=== PATIENT | male | born 1950 | race Caucasian/White ===

== ENCOUNTER 2016-05-26 10:04 | Day surgery (SDC) | payer OTHER ==
[2016-05-22 11:04] VITALS: BMI 24.7
[~2016-05-26 10:04] MED LIST: LACTATED RINGERS 1,000 ML IV SCH
[2016-05-26 10:31] VITALS: RESP 16; TEMP 98
[2016-05-26] MEDS ORDERED: LIDOCAINE 1% 20 ML VIAL (10MG/ML) FOR IV START INTRADERMA ONE (10:37)
[2016-05-26] MEDS ORDERED: LIDOCAINE 1% INJ 10MG/ML (20 ML MDV) ONE (11:11)
[2016-05-26] MEDS ORDERED: PROPOFOL 10 MG/ML 20 ML VIAL IV ONE (11:11)
--- NOTE | 2016-05-26 11:45 | P.PCN ---
Date of Procedure: 05/26/16 Procedure(s) Performed: Procedure: Colonoscopy and polypectomy. Preoperative diagnosis: Screening for neoplasia. Postoperative diagnosis: 1. Distal sigmoid polyp snared but no large polyps or cancer. 2. Mild sigmoid diverticulosis with no evidence of acute diverticulitis or strictures. Preparation: HalfLytely prep. Sedation: Was provided by anesthesia. Brief clinical history: The patient is a 65-year-old male who is referred for this evaluation for screening for neoplasia, age being his risk factor. He has no abdominal complaints, bleeding or anemia. This would be his first colonoscopy. Procedure: With the patient on his left lateral decubitus position and after informed consent and adequate sedation, the perianal area was inspected and it did not show any fissures or fistulas. There were no masses felt on digital rectal examination. The Olympus CFQ 160L video colonoscope was then inserted in the rectum in the usual fashion and advanced to the cecum. There was few small diverticular orifices seen scattered in the sigmoid with no evidence of acute diverticulitis or strictures. The mucosa appeared healthy. A small polyp was seen in the distal sigmoid. It was snared and retrieved by suction. There were no large polyps or cancer. I retroflexed the endoscope in the rectum before the endoscope was withdrawn. The patient tolerated the procedure well. Plan: The patient was reassured. Discussed dietary measures. I anticipate repeating this exam in 5 years. He will follow up with you as planned.
[2016-05-26 12:01] VITALS: BP 148/68; PULSE 68
== END 2016-05-26 12:17 | disposition home or self-care (01) ==
LOC: ORWHC2ENDO 10:04
DX: Z12.11 Encounter for screening for malignant neoplasm of colon (principal); D12.5 Benign neoplasm of sigmoid colon; K57.30 Diverticulosis of large intestine without perforation or abscess without bleeding; F17.200 Nicotine dependence, unspecified, uncomplicated; M19.90 Unspecified osteoarthritis, unspecified site; Z79.891 Long term (current) use of opiate analgesic
CPT/HCPCS: 88305; 45385; J2001; J2704

== ENCOUNTER → 2019-09-26 | Outpatient (CLI) | payer MEDICARE, OTHER ==
--- NOTE | 2019-09-26 16:01 | CTL ---
EXAMINATION TYPE: CT Low Dose Lung DATE OF EXAM ORDERED: 09/26/2019 HISTORY: Personal history tobacco use. Lung cancer screening CT DLP: [address] CTDI: 1.95 mGy Automated exposure control for dose reduction was used. SCREENING VISIT: 1 COMPARISON: None TECHNIQUE: Low dose computed tomography scan was performed through the chest at 1 mm thick sections a nd reconstructed images in the coronal plane at [address] DIAGNOSTIC QUALITY: Satisfactory FINDINGS: LUNG NODULES: Present, detailed below: There are bilateral calcified pulmonary nodules which are subc entimeter in size scattered within the lungs. Largest nodules in the right upper lobe and right lower lobe and measures approximately 5 mm. LUNGS: COPD: Severity: None Fibrosis: Severity: None Lymph nodes: Nonenlarged Other findings: Calcified right hilar nodes RIGHT PLEURAL SPACE: Effusion: None Calcification: None Thickening: None Pneumothorax: None LEFT PLEURAL SPACE: Effusion: None Calcification: None Thickening: None Pneumothorax: None HEART: Heart Size: Normal Coronary calcification: Mild Pericardial effusion: None OTHER FINDINGS: Upper abdomen: Unremarkable, suspect a, aortic left renal vein Bony thorax: There is spondylosis present within the visualized spine Supraclavicular region: Unremarkable Other: IMPRESSION: Probably benign FOLLOW UP CT CHEST RECOMMENDATION: 6-[address] LUNG RAD: 3
== END | disposition home or self-care (01) ==
LOC: RADCTMAIN 13:59
PROVIDERS: ATTEND Nurse Practitioner Family
DX: Z12.2 Encounter for screening for malignant neoplasm of respiratory organs (principal); F17.210 Nicotine dependence, cigarettes, uncomplicated

== ENCOUNTER → 2020-04-15 | Outpatient (CLI) | payer MEDICARE, OTHER ==
--- NOTE | 2020-04-15 16:21 | CT ---
EXAMINATION TYPE: CT chest wo con DATE OF EXAM: 04/15/2020 COMPARISON: 09/26/2019 low-dose CT chest HISTORY: Previous abnormal exam of lung virgen CT DLP: 508 mGycm, Automated exposure control for dose reduction was used. CONTRAST: Performed injected with 0 mL of Isovue 300. TECHNIQUE: Axial images were obtained at 5 mm thick sections. Reconstructed images are reviewed on [employer] computer in the coronal plane. FINDINGS: Portion of the thyroid visualized is normal. Numerous small nodules are scattered throughout the bilateral lung virgen in both upper and lower александр g virgen. A large majority of these can be classified as simple granuloma there are calcified. Some o f these however lack calcification anterolateral uncertain etiology. Enlarging or new nodules are not identified. No enlarged mediastinal or hilar adenopathy is evident. The ascending aorta diameter at the level o f the main pulmonary artery is 3.6 cm. The main pulmonary artery diameter at the bifurcation is 2.[address] sections are obtained through the upper abdomen. Abdomen is essentially unremarkable. IMPRESSIONS: 1. Multiple scattered nodules present bilaterally majority are calcified benign nodules. Suspicious n ew or enlarging nodules are not identified. Continued monitoring with CT chest is recommended.
== END | disposition home or self-care (01) ==
LOC: RADCTMAIN 09:27
PROVIDERS: ATTEND Family Medicine
DX: R91.8 Other nonspecific abnormal finding of lung field (principal)
CPT/HCPCS: 71250

== ENCOUNTER 2020-09-13 12:24 | Emergency (ER) | payer MEDICARE, OTHER ==
[2020-09-13 12:37] VITALS: RESP 18
--- NOTE | 2020-09-13 13:28 | XR ---
EXAMINATION TYPE: XR knee complete LT DATE OF EXAM: 09/13/2020 CLINICAL HISTORY: Pain TECHNIQUE: Three views of the left knee are obtained. COMPARISON: None. FINDINGS: There is no acute fracture/dislocation evident in left knee. There are tricompartmental de generative changes with a small nonspecific knee joint effusion and prepatellar swelling. Vascular ca lcifications are seen. IMPRESSION: There are tricompartmental degenerative changes with a small nonspecific knee joint effusion and prep atellar swelling.
--- NOTE | 2020-09-13 13:44 | ED ---
General Adult HPI - General Chief complaint: Extremity Problem,Nontraumatic Stated complaint: knee pain Time Seen by Provider: 09/13/20 12:44 Source: patient, RN notes reviewed, old records reviewed Mode of arrival: ambulatory Limitations: no limitations - History of Present Illness Initial comments: 69-year-old male with left knee pain. He has chronic left knee pain for the past 12 years. This is been worsening recently. He has been favoring the right leg but now is having trouble with increased pain in the left despite minimal use. He has not seen orthopedics but has been evaluated by his primary care physician. He's had no fever. He reports minimal swelling. No constitutional symptoms. No injury. - Related Data Home Medications Medication Instructions Recorded Confirmed Mobic (Unknown Dose) 1 tab PO DAILY 05/22/16 05/26/16 Naproxen Sodium [Aleve] 220 mg PO DAILY PRN 05/22/16 05/26/16 Nicotine Patch (Unknown Dose) 1 patch TOPICAL DAILY 05/22/16 05/26/16 Previous Rx's Medication Instructions Recorded Acetaminophen-Codeine 300-30mg 1 tab PO Q6H PRN 3 Days #12 tablet 09/13/20 [Tylenol w/codeine #3] Allergies Allergy/AdvReac Type Severity Reaction Status Date / Time No Known Allergies Allergy Verified 09/13/20 12:37 Review of Systems ROS Statement: Those systems with pertinent positive or pertinent negative responses have been documented in the HPI. ROS Other: All systems not noted in ROS Statement are negative. Past Medical History Additional Past Medical History / Comment(s): chronic left knee pain; ARTHRITIS. History of Any Multi-Drug Resistant Organisms: None Reported Past Surgical History: Tonsillectomy Additional Past Surgical History / Comment(s): TONSILLS (CHILD) Past Anesthesia/Blood Transfusion Reactions: No Reported Reaction Past Psychological History: No Psychological Hx Reported Smoking Status: Current every day smoker Past Alcohol Use History: Occasional Past Drug Use History: Marijuana - Past Family History Mother Family Medical History: No Reported History General Exam Limitations: no limitations General appearance: alert, in no apparent distress Head exam: Present: atraumatic, normocephalic Eye exam: Present: normal appearance, PERRL ENT exam: Present: normal exam Neck exam: Present: normal inspection. Absent: tenderness Respiratory exam: Present: normal lung sounds bilaterally. Absent: respiratory distress, wheezes Cardiovascular Exam: Present: regular rate, normal rhythm GI/Abdominal exam: Present: soft. Absent: distended, tenderness, guarding Extremities exam: Present: full ROM, tenderness, joint swelling (Will joint effusion), other (She has good range of motion of the knee, there is no erythema, no warmth.) Neurological exam: Present: alert, oriented X3, CN II-XII intact. Absent: motor sensory deficit Psychiatric exam: Present: normal affect, normal mood Skin exam: Present: warm, dry, intact Course Vital Signs 09/13/20 12:34 Temperature 97.8 F Pulse Rate 61 Respiratory 18 Rate Blood Pressure 130/49 O2 Sat by Pulse 96 Oximetry Medical Decision Making - Medical Decision Making X-ray showing tricompartment degenerative change, no acute fracture. Patient does have a minimal effusion on both on x-ray and on exam although there is very minimal concern for infectious etiology here. Patient is given return parameters also given orthopedic follow-up. He will continue anti- inflammatories at home. He is additionally prescribed Tylenol 3 for increased pain. Disposition Clinical Impression: Osteoarthritis Disposition: HOME SELF-CARE Condition: Good Instructions (If sedation given, give patient instructions): Osteoarthritis (ED) Prescriptions: Acetaminophen-Codeine 300-30mg [Tylenol w/codeine #3] 1 tab PO Q6H PRN 3 Days #12 tablet PRN Reason: Pain Is patient prescribed a controlled substance at d/c from ED?: No Referrals: Shonna Crow DO [Primary Care Provider] - 1-2 days Minh Jimenez DO [Doctor of Osteopathic Medicine] - 1-2 days Time of Disposition: 13:43
[2020-09-13 13:52] VITALS: BP 136/78; PULSE 72; TEMP 97.9
== END 2020-09-13 13:51 | disposition home or self-care (01) ==
LOC: EC 12:24
DX: M17.12 Unilateral primary osteoarthritis, left knee (principal); F17.200 Nicotine dependence, unspecified, uncomplicated; F12.90 Cannabis use, unspecified, uncomplicated; Z79.1 Long term (current) use of non-steroidal anti-inflammatories (NSAID)
CPT/HCPCS: 99283

== ENCOUNTER → 2022-09-15 | Outpatient (CLI) | payer MEDICARE, OTHER ==
--- NOTE | 2022-09-15 11:15 | CTL ---
EXAMINATION TYPE: CT Low Dose Lung DATE OF EXAM ORDERED: 09/15/2022 HISTORY: . Lung cancer screening CT DLP: 100.6 mGycm Automated exposure control for dose reduction was used. SCREENING VISIT: COMPARISON: TECHNIQUE: Low dose computed tomography scan was performed through the chest at 1 mm thick sections a nd reconstructed images in the coronal plane at [address] DIAGNOSTIC QUALITY: Satisfactory FINDINGS: LUNG NODULES: Present, detailed below: There are multiple calcified smooth bordered rounded calcifications within the bilateral lung virgen. These are detailed below: There is a 0.6 cm calcification anterior lateral right mid lung. Series 4 image 96. Additional calcification is in the anterior right lung measuring 0.4 cm. Series 4 image 93. There is a calcification in the anterior peripheral right mid lung. Series 4 image 29. A 0.4 cm calcification is in the anterior left midlung. Series 4 image 197. Calcification within the right middle lobe measuring 0.5 cm, series 4 image 202. Calcifications are in the peripheral right mid to lower lung field measuring 0.5 cm each. Series 4 im age 206. Calcification in the anterior right middle lobe measuring 0.4 cm. Series 4 image 220. Peripheral calcification is present measuring 0.6 cm, series 4 image 235. Lingular calcification near the lung bases present. 0.4 cm. Series 4 image 241. Right lower lobe calcification is present anteriorly measuring 0.5 cm. Series 4 image 245. Peripheral calcification measuring 0.4 cm is in the posterior lateral right lower lung field, series 4 image 250. Left peripheral lung base nodule measuring 0.5 cm, series 4 image 262. 0.3 cm calcification posterior lateral right lung base. Series 4 image 267. Punctate calcification over the right diaphragm measuring 0.4 cm. Series 4 image 280. A 0.3 cm calcification posterior medial left lung base. Series 4 image 288 cm. 0.4 nodules at the left and right diaphragms, series 4 image 283. LUNGS: COPD: Severity: None Fibrosis: Severity: None Lymph nodes: None Other findings: None RIGHT PLEURAL SPACE: Effusion: None Calcification: None Thickening: None Pneumothorax: None LEFT PLEURAL SPACE: Effusion: None Calcification: None Thickening: None Pneumothorax: None HEART: Heart Size: Normal Coronary calcification: Mild Pericardial effusion: None OTHER FINDINGS: Upper abdomen: Normal Bony thorax: Normal Supraclavicular region: Normal Other: Ascending thoracic aorta and main pulmonary arteries 3.6 cm. Main pulmonary artery bifurcation is 2.5 cm. IMPRESSION: 1. Benign appearing findings, stable from comparison FOLLOW UP CT CHEST RECOMMENDATION: Follow-up low-dose CT chest [address] LUNG RAD: Lung-Rad 2 Benign Appearance or Behavior
== END | disposition home or self-care (01) ==
LOC: RADCTMAIN 09:05
PROVIDERS: ATTEND Family Medicine
DX: Z12.2 Encounter for screening for malignant neoplasm of respiratory organs (principal); R91.8 Other nonspecific abnormal finding of lung field; F17.210 Nicotine dependence, cigarettes, uncomplicated
CPT/HCPCS: 71271

== ENCOUNTER → 2023-07-08 | Outpatient (CLI) | payer MEDICARE, OTHER ==
--- NOTE | 2023-07-09 06:49 | CA ---
Transthoracic Echo Report Name: Leonel Lou Age: 72 Gender: M : 1950 Exam Date: 07/08/2023 08:38 Exam Location: [facility] Ht (in): 70 Wt (lb): 165 Ordering Physician: Jose R Lui MD Attending/Referring Phys: Farrah Mcintyre [facility] Knot Bumper Umu Mckeon RDCS Procedure CPT: Indications: R00.1 BRADYCARDIA R94.31 ABNORMAL EKG Cardiac Hx: Technical Quality: Fair Contrast 1: Total Dose (mL): Contrast 2: Total Dose (mL): MEASUREMENTS (Male / Female) Normal Values 2D ECHO LV Diastolic Diameter PLAX 4.5 cm 4.2 - 5.9 / 3.9 - 5.3 cm LV Systolic Diameter PLAX 3.1 cm IVS Diastolic Thickness 1.2 cm 0.6 - 1.0 / 0.6 - 0.9 cm LVPW Diastolic Thickness 1.0 cm 0.6 - 1.0 / 0.6 - 0.9 cm LV Relative Wall Thickness 0.5 RV Internal Dim ED PLAX 2.7 cm LA Systolic Diameter LX 3.3 cm 3.0 - 4.0 / 2.7 - 3.8 cm LV Diastolic Volume MOD BP 101.6 cm??? 67 - 155 / 56 - 104 cm??? LV Systolic Volume MOD BP 28.7 cm??? 22 - 58 / 19 - 49 cm??? LV Ejection Fraction MOD BP 71.7 % >= 55 % LV Diastolic Volume MOD 4C 101.5 cm??? LV Systolic Volume MOD 4C 29.0 cm??? LV Ejection Fraction MOD 4C 71.4 % LV Diastolic Length 4C 8.0 cm LV Systolic Length 4C 5.8 cm LV Diastolic Volume MOD 2C 101.5 cm??? LV Systolic Volume MOD 2C 27.6 cm??? LV Ejection Fraction MOD 2C 72.8 % LV Diastolic Length 2C 7.9 cm LV Systolic Length 2C 6.1 cm M-MODE Aortic Root Diameter MM 3.1 cm LA Systolic Diameter MM 3.9 cm LA Ao Ratio MM 1.2 AV Cusp Separation MM 1.9 cm DOPPLER AV Peak Velocity 185.8 cm/s AV Peak Gradient 13.8 mmHg AV Mean Velocity 133.3 cm/s AV Mean Gradient 8.0 mmHg AV Velocity Time Integral 54.1 cm LVOT Peak Velocity 121.1 cm/s LVOT Peak Gradient 5.9 mmHg LVOT Velocity Time Integral 31.5 cm Mitral E Point Velocity 90.7 cm/s Mitral A Point Velocity 84.2 cm/s Mitral E to A Ratio 1.1 MV Deceleration Time 267.6 ms MV E' Velocity 8.8 cm/s Mitral E to MV E' Ratio 10.3 TR Peak Velocity 202.2 cm/s TR Peak Gradient 16.3 mmHg Right Ventricular Systolic Press 21.9 mmHg FINDINGS Left Ventricle Left ventricular ejection fraction is estimated at 55-60 %. Mildly increased septal wall thickness. Normal left ventricular wall motion. No obvious regional wall motion abnormalities. Right Ventricle Normal right ventricular size and function. Right ventricular systolic pressure within normal limits. Right Atrium Normal right atrial size. Left Atrium Normal left atrial size. Mitral Valve Structurally normal mitral valve. Mild mitral regurgitation. Aortic Valve Trileaflet aortic valve. No aortic stenosis. No aortic regurgitation. Thickened aortic valve without stenosis. Aortic valve sclerosis. Tricuspid Valve Structurally normal tricuspid valve. Mild tricuspid regurgitation. Pulmonic Valve Structurally normal pulmonic valve. Trace pulmonic regurgitation. Pericardium No pericardial or pleural effusion. Aorta Normal size aortic root and proximal ascending aorta. CONCLUSIONS Normal LV systolic function Aortic sclerosis with no stenosis Previewed by: Dr. Timoteo Miller MD (Electronically Signed) Final Date: 09 Jul 2023 06:48
--- NOTE | 2023-07-09 19:16 | CA ---
Exercise Stress Test Report Name: Leonel Lou Exam Date: 07/08/2023 09:12 Exam Location: [facility] Ht (in): 70 Wt (lb): 165 BSA: 1.92 Ordering Phys: Jose R Lui MD Referring Phys: Farrah Mcintyre Technologist: Pascale Cox RDCS Age: 72 Gender: M : 1950 Procedure CPT: Indications: R00.1 BRADYCARDIA R94.31 ABNORMAL EKG ICD-10 Codes: Patient History: HYPERCHOLESTEROLEMIA, FAMILY HX OF HEART DISEASE, COPD Medications: Meds past 24 hrs: Pretest Chest Pain: STRESS TEST Protocol Exercise Duration (min:sec): 06:[address] Depressions (mm): Angina Score: Alfredo Score: Resting HR (bpm): 48 Peak HR (bpm): 89 Resting BP (mmHg): 131 / 73 Peak BP (mmHg): 189 / 75 MPHR: 149 Target HR: 127 % MPHR: 60 METS: 6.2 Total Dose: Peak Dose: Atropine: Double Product: 15339 BP Response: Stress Termination: PT UNABLE TO COMPLETE TARGET HR EXERCISE CAPACITY DUE TO PHYSICAL LIMITATIONS Stress Symptoms: NO SYMPTOMS Stress Summary: ECG ANALYSIS Resting ECG: Stress ECG: CONCLUSIONS Nondiagnostic stress testing Dr. Timoteo Miller MD (Electronically Signed) Final Date: 09 Jul 2023 19:15
== END | disposition home or self-care (01) ==
LOC: RADECHMAIN 08:30
PROVIDERS: ATTEND Family Medicine
DX: I70.0 Atherosclerosis of aorta (principal); R00.1 Bradycardia, unspecified; R94.31 Abnormal electrocardiogram [ECG] [EKG]
CPT/HCPCS: 93017; 93306

== ENCOUNTER → 2024-04-04 | Outpatient (CLI) | payer MEDICARE, OTHER ==
--- NOTE | 2024-04-04 14:37 | CTL ---
EXAMINATION TYPE: CT Low Dose Lung DATE OF EXAM ORDERED: 04/04/2024 COMPARISON: 09/15/2022 CLINICAL INDICATION: Male, 73 years old with history of Z12.2 Screening; PHH, Personal hx nicotine de pendence, Lung cancer screening, History of Smoking/tobacco use. TECHNIQUE: Low dose computed tomography scan was performed through the chest at 1 mm thick sections a nd reconstructed images in multiple planes at 1 mm and [address] DLP: [address] CTDI: 1.68 mGy Automated exposure control for dose reduction was used. CT DIAGNOSTIC QUALITY: Satisfactory FINDINGS: EXAMINATION TYPE: CT Low Dose Lung DATE OF EXAM ORDERED: 04/04/2024 HISTORY: Lung cancer screening CT DLP: [address] CTDI: 1.68 mGy Automated exposure control for dose reduction was used. Comparison: None TECHNIQUE: Low dose computed tomography scan was performed through the chest at 1 mm thick sections a nd reconstructed images in multiple planes at 1 mm and [address] DIAGNOSTIC QUALITY: Satisfactory FINDINGS: There is a stable 7.2 mm nodule in the right middle lobe. There are multiple scattered stable calcifi ed granulomas. The lungs are clear and there is no abnormal airspace consolidation or interstitial density. There is no mediastinal, hilar or axillary adenopathy. There are calcified lymph nodes but there is n o adenopathy. There is no pleural effusion, pleural thickening or pneumothorax. No focal osseous lesions are seen. Limited scans the upper abdomen reveals no gross abnormality IMPRESSION: 1. Lung rads Category 2 benign. Continue routine screening at yearly intervals. 2. No acute cardiopulmonary disease. 3. Prior granulomatous disease exposure [facility], , 04/04/2024 2:35 PM
== END | disposition home or self-care (01) ==
LOC: RADCTMAIN 13:20
PROVIDERS: ATTEND Family Medicine
DX: Z12.2 Encounter for screening for malignant neoplasm of respiratory organs (principal); F17.210 Nicotine dependence, cigarettes, uncomplicated
CPT/HCPCS: 71271